=== PATIENT | female | born 1980 | race Caucasian/White ===

== ENCOUNTER → 2020-11-15 | Outpatient (CLI) | payer BC | LOC: COL.RAD 12:44 | DX: L98.8 Other specified disorders of the skin and subcutaneous tissue (principal); M25.541 Pain in joints of right hand | CPT/HCPCS: A9585 ==

== ENCOUNTER → 2020-11-15 | Outpatient (CLI) | payer BC | LOC: MC.RAD 10:31 | DX: Z12.31 Encounter for screening mammogram for malignant neoplasm of breast (principal) ==